=== PATIENT | male | born 1955 | race Caucasian/White ===

== ENCOUNTER 2017-01-21 07:45 | Emergency (ER) | payer OTHER ==
[~2017-01-21] VITALS: Ht 193 cm; Wt 120.2 kg
[2017-01-21 07:50] VITALS: BP 126/83
--- NOTE | 2017-01-21 08:27 | ED ANKLE/FOOT INJURY COMPLAINT ---
History of Present Illness General Chief Complaint: Foot or Ankle Injury Stated Complaint: R ANKLE/FT PAIN Source: patient, old records Exam Limitations: no limitations Vital Signs & Intake/Output Vital Signs & Intake/Output Vital Signs Date Time Temp Pulse Resp B/P B/P Pulse O2 O2 Flow FiO2 Mean Ox Delivery Rate 01/21 0750 98.2 92 16 126/83 96 Allergies Coded Allergies: NO KNOWN ALLERGIES (06/14/13) Reconcile Medications Ibuprofen 800 MG TABLET 1 TAB PO Q6PRN PRN pain Oxycodone HCl/Acetaminophen (Percocet 5-325 MG Tablet) 5 MG-325 MG TABLET 1 TAB PO Q6H PRN severe pain Triage Note: PT STATES HE TWISTED HIS RIGHT ANKLE AT 1550 ON FRIDAY. Triage Nurses Notes Reviewed? yes Occurred: 4 days Duration: day(s):, constant, continues in ED Timing: recent history Severity: moderate, severe Pain/Injury Location: Right: Foot, Ankle. Method of Injury: direct blow, twisted Modifying Factors: Improves With: rest. Worsens With: jarring, movement. Associated Symptoms: swelling, GCS 15 since, stiffness HPI: 4 days prior to admission patient recalls losing his balance twisting his right ankle and striking the outside of his foot against a stair with continued pain and swelling worse with weightbearing ambulation with associated bruising over the dorsum of his foot. He denies other injury fever chills nausea vomiting diarrhea abdominal pain chest pain shortness breath headache dysuria rash. Past History Travel History Traveled to [place] past 21 day No Medical History Any Pertinent Medical History? see below for history Cardiovascular: hypertension, hyperlipidemia Respiratory: asthma, COPD Surgical History Surgical History: non-contributory Psychosocial History What is your primary language Serbian Tobacco Use: Current Daily Use Daily Tobacco Use Amount/Type: =< 4 Cigarettes daily ETOH Use: denies use Illicit Drug Use: denies illicit drug use Family History Hx Contributory? No Review of Systems Review of Systems Constitutional: Reports: no symptoms. EENTM: Reports: no symptoms. Respiratory: Reports: no symptoms. Cardiovascular: Reports: no symptoms. GI: Reports: no symptoms. Genitourinary: Reports: no symptoms. Musculoskeletal: Reports: see HPI, joint pain, joint swelling. Skin: Reports: no symptoms. Neurological/Psychological: Reports: no symptoms. Hematologic/Endocrine: Reports: no symptoms. Immunologic/Allergic: Reports: no symptoms. All Other Systems: Reviewed and Negative Physical Exam Physical Exam General Appearance: well developed/nourished, alert, awake, mild distress, obese Head: atraumatic, normal appearance Eyes: Bilateral: normal appearance, PERRL, EOMI. Ears, Nose, Throat: normal pharynx, normal ENT inspection, hearing grossly normal Neck: normal inspection, supple, full range of motion, no midline tenderness Cardiovascular/Respiratory: normal breath sounds, normal peripheral pulses, regular rate/rhythm, no respiratory distress Back: normal inspection, normal range of motion, no vertebral tenderness Leg/Knee/Thigh Left: normal range of motion, normal inspection Leg/Knee/Thigh Right: normal range of motion, normal inspection Ankle Left: normal inspection, normal range of motion Ankle Right: ecchymosis, evidence of injury, soft tissue tenderness, swelling, tenderness, limited range of motion Foot Left: normal inspection, normal range of motion Foot Right: tenderness, bone tenderness, limited range of motion, soft tissue tenderness, swelling Reflexes: 2+: knee (R), knee (L). Neuro/Vascular: normal motor function, normal sensation, abnormal cap refill Tendon: normal tendon function Psychiatric: awake, alert, oriented x 3 Skin: intact, normal color, warm/dry Progress Differential Diagnosis: fracture, sprain, contusion Plan of Care: Orders Procedure Date/time Status Durable Medical Equipment 01/21 830 Active Diagnostic Imaging: Viewed by Me: Radiology Read. Discussed w/RAD: Radiology Read. Radiology Impression: Oblique, intra-articular fracture at the base of the fifth metatarsal. Ankle joint effusion. Regional soft tissue swelling along the lateral foot and ankle. Departure Departure Time of Disposition: 826 Disposition: HOME OR SELF CARE Condition: Stable Clinical Impression Primary Impression: Sahni fracture Qualifiers: Encounter type: initial encounter Fracture type: closed Laterality: right Qualified Code: S92.351A - Displaced fracture of fifth metatarsal bone, right foot, initial encounter for closed fracture Referrals: TEOFILO CROWE MD Call for orthopedic follow up ÁNGELA ESTEBAN MD (PCP/Family) Additional Instructions: No weight bearing until cleared by orthopedic surgery. Departure Forms: Customer Survey General Discharge Information RELEASE- WORK Prescriptions: Current Visit Scripts Ibuprofen 1 TAB PO Q6PRN PRN pain #50 TAB Oxycodone HCl/Acetaminophen (Percocet 5-325 MG Tablet) 1 TAB PO Q6H PRN severe pain #20 TAB
[2017-01-21] MEDS ORDERED: IBUPROFEN800 M1 PO (08:29)
[2017-01-21] MEDS ORDERED: PERCOCET 5-3251 EACH PO (08:29)
--- NOTE | 2017-01-21 08:56 | RADIOLOGY REPORT ---
EXAMINATION: XR RIGHT FOOT AND ANKLE CLINICAL INFORMATION: Pain and swelling after injury. Fifth metatarsal pain. COMPARISON: None TECHNIQUE: 3 views of the right foot. 3 views of the right ankle. FINDINGS: Foot: There is a minimally displaced, oblique, intra-articular fracture at the base of the fifth metatarsal. No significant callus formation. There is surrounding soft tissues swelling. No additional fractures. There are degenerative changes at the first MTP with joint space loss and marginal osteophyte formation. Alignment appears anatomic. Ankle: There is soft tissue swelling about the lateral malleolus. No fractures at the level of the ankle are visualized. There is an ankle joint effusion. The ankle mortise is congruent. The talar dome is intact. There is mild enthesopathy at the insertion of the Achilles tendon. IMPRESSION: Oblique, intra-articular fracture at the base of the fifth metatarsal. Ankle joint effusion. Regional soft tissue swelling along the lateral foot and ankle.
== END 2017-01-21 08:54 ==
LOC: ERH 07:45
DX: S92.351A Displaced fracture of fifth metatarsal bone, right foot, initial encounter for closed fracture (principal); X58.XXXA Exposure to other specified factors, initial encounter; Y92.9 Unspecified place or not applicable; Y93.9 Activity, unspecified
CPT/HCPCS: 73610-RT; 73630-RT